=== PATIENT | male | born 1960 | race Caucasian/White ===

== ENCOUNTER → 2022-06-11 15:20 | Outpatient (BNVA) | payer OTHER, SELFPAY | PROVIDERS: PCP Nurse Practitioner Family; Visit Provider Internal Medicine | DX: M79.2 Neuralgia and neuritis, unspecified (principal) | CPT/HCPCS: 64425 ==

== ENCOUNTER → 2022-07-09 14:16 | Outpatient (BNVA) | payer OTHER, SELFPAY | PROVIDERS: PCP Nurse Practitioner Family; Visit Provider Internal Medicine | DX: Z13.89 Encounter for screening for other disorder (principal) ==

== ENCOUNTER 2022-09-12 14:23 | Day surgery (SDC) | payer OTHER, SELFPAY ==
--- NOTE | ~2022-09-12 | FL_ITS ---
EXAMINATION: XR FLUOROSCOPY WITH IMAGES CLINICAL INFORMATION: Lumbar surgical pain, medial nerve block. COMPARISON: None available. TECHNIQUE: Fluoroscopy Supervised By: Dr. Almonte. Fluoroscopy Time: 0.5 minutes. Cumulative Dose: 7.4 mGy. DAP: 1.07 Gycm2. Images: 5. FINDINGS: Limited field of view. Exact level difficult to discern. Correlate with real-time findings. FL/FL guidance in OR IMPRESSION: Limited field of view. As above.
[2022-09-12 14:45] VITALS: BP 129/94; PULSE 120; RESP 18; TEMP 37.7; O2SAT 95; BMI 21.3
[2022-09-12 17:50] VITALS: BP 151/95; PULSE 87; RESP 16; TEMP 36.9; O2SAT 96
--- NOTE | 2022-09-12 18:25 | PC.NURSE ---
1814 Dr. Jonel courtney procedure in PACU request was made for placement of discharge orders for patient. Patient device rep reviewed post op plan and orders with patient following procedure. Patient reports aware of post op limitations and plan as was reviewed by rep prior to and following procedure. Patient indicated need to discharge to home now related to ride issue and is unable to wait for surgeon to input discharge. Patient indicated ride availability impacted by the delay of procedure. Patient ambulatory, dressed at bedside without limitation steady on feet.
--- NOTE | 2022-09-12 18:35 | MHC.SHP ---
Pre-Procedural Eval Section A Date of Service: 09/12/22 The patient is an INPATIENT: No Changes since office visit: Yes Patient answered all questions The History & Physical has been completed within 30 days and I have reviewed it.: Yes Section B Chief Complaint: Neuralgia and neuritis, unspecified Relevant Family History (Specify if Yes): Yes Relevant Social History: None Present Medications: see Short Stay Collaborative assessment Medical History: No relevant PMH History of Previous Operations: No relevant previous surgery Allergies: Allergies Allergy/AdvReac Type Severity Reaction Status Date / Time keflex AdvReac Mild Hives Uncoded 07/09/22 14:27 Review of Systems Sugical H&P ROS: Negative: Constitution, Cardiovascular and Respiratory Exam Surgical H&P Exam: Normal: HEENT, Normal: Heart and Normal: Lungs Plan Diagnosis/Plan: Unchanged I have reviewed the history and physical and performed a pertinent physical examination on my patient. No changes have occurred unless specified. Proceed with L1 versus L2 nerve root stimulator placement for ilioinguinal neuralgia. Time Spent With Patient Time: Total time managing care of this patient today ____ minutes.
--- NOTE | 2022-09-12 18:35 | PM.OP ---
Brief Operative Note Date of Service: 09/12/22 Pre-op diagnosis: Ilioinguinal neuralgia Post-op diagnosis: same Procedure: Left L2 nerve root temporary stimulator placement Implants: Sprint temporary PNS system Surgeon: John Remy MD Anesthesia: local Was an Advanced Analytics Associate used for this Procedure?: No Estimated blood loss (mL): 1 Pathology: none sent Condition: stable Disposition: same day
--- NOTE | 2022-09-12 18:35 | W.PM.OPN ---
Operative Note Operative Note Date of Service: 09/12/22 Narrative: Lumbar Nerve Root Temporary Nerve Stimulator Placement, Left L2 ? After the risks, benefits and alternatives were discussed with the patient and informed consent was obtained, patient was placed in the prone position and padded to foster comfort. The skin overlying the lumbosacral spine was prepped and draped in sterile fashion. Fluoroscopy was used to identify the L1 vertebral body. The patient was noted to have 6 lumbar type vertebral bodies and 12 thoracic type vertebral bodies. Decision was made to trial both L1 and L2 nerve roots her appropriateness of respective coverage. After identifying and marking the intended target along the course of the medial branch nerve, the skin around the planned entry point and the subcutaneous tissues were injected with lidocaine 0.75%. An introducer needle and stimulating probe were assembled, inserted and advanced in an ipsilateral oblique fashion towards the safe triangle within the upper pole of the L1 neural foramen, taking care to maintain the proper depth of insertion as the introducer was advanced under fluoroscopic guidance. The introducer needle was delivered to a location in proximity to the nerve root. Multiple stimulation parameters were used to deliver stimulation to the target medial branch nerve in concert with stimulating at multiple positions around the nerve. The patient did not report adequate corresponding paresthesia coverage with stimulation of the L1 nerve root. The probe was removed and then replaced at the L2 level. Nerve target acquisition was confirmed noting generation of paresthesias in the left buttock and groin. Various electrical parameter combinations were tested. The stimulating probe was removed from the introducer and a percutaneous lead was guided through the needle and delivered to a location in similar proximity to the nerve. Final location was verified with electrical stimulation and documented with fluoroscopy. The introducer needle was removed. Unfortunately the stimulation lead did not deploy and was pulled out upon the removal of the introducer needle. The introducer needle was then reassembled and replaced as before and then lead was inserted once again. It deployed successfully upon removal of the introduce a loop needle on the 2nd attempt. The exposed end of the percutaneous lead was attached to an external stimulator unit. Various electrical parameter combinations were again tested until the patient indicated paresthesia or muscle tension overlapping the distribution of the patient?s typical region of pain. After confirming that lead impedance was in the normal range, the external unit was detached, the needle was removed, and the lead was anchored at the skin. The lead was threaded into the connector block and electrical continuity and desired patient response was confirmed. The connector block was attached to the external stimulator unit. The site was covered with a sterile occlusive dressing. The patient was observed for stability of vital signs and comfort.
== END 2022-09-12 18:36 | disposition home or self-care (01) ==
PROVIDERS: PCP Nurse Practitioner Family; Visit Provider Internal Medicine
PROC: (CPT 64555; principal; 2022-09-12 14:30)
DX: G57.80 Other specified mononeuropathies of unspecified lower limb (principal); G89.29 Other chronic pain; M25.511 Pain in right shoulder; Z98.890 Other specified postprocedural states; M54.9 Dorsalgia, unspecified; I10 Essential (primary) hypertension; Z79.1 Long term (current) use of non-steroidal anti-inflammatories (NSAID); Z79.899 Other long term (current) drug therapy; F10.10 Alcohol abuse, uncomplicated; F12.90 Cannabis use, unspecified, uncomplicated; Z88.1 Allergy status to other antibiotic agents
CPT/HCPCS: 64555; C1778

== ENCOUNTER → 2022-09-17 08:06 | Outpatient (BNVA) | payer OTHER, SELFPAY | PROVIDERS: PCP Nurse Practitioner Family; Visit Provider Internal Medicine ==

== ENCOUNTER → 2022-10-09 07:57 | Outpatient (BNVA) | payer OTHER, SELFPAY | PROVIDERS: PCP Nurse Practitioner Family; Visit Provider Internal Medicine ==

== ENCOUNTER 2022-10-17 14:24 | Outpatient (REF) | payer OTHER, SELFPAY ==
--- NOTE | ~2022-10-17 | XR_ITS ---
EXAMINATION: XR LUMBOSACRAL SPINE CLINICAL INFORMATION: Reason for Exam M47.816 - Spondylosis without myelopathy or radiculopathy, lumbar region COMPARISON: None TECHNIQUE: 3 views of the lumbar spine FINDINGS: There are 6 nonrib-bearing lumbar-type vertebral bodies with lumbarization of S1, and if intervention is being considered recommend total spine radiographs to ensure accurate numbering. The last well-formed disc space will be referred to as S1-S2. Vertebral body heights are maintained. Grade 1 anterolisthesis of L5 on S1 and grade 1 retrolisthesis of L4 on L5. Mild multilevel degenerative disc disease with loss of disc space height and facet arthropathy. A generator device presumed to reflect a spinal cord stimulator with leads terminating overlying the right L2-L3 neural foramina. XR/XR lumbar spine 2-3V IMPRESSION: 1. There are 6 nonrib-bearing lumbar-type vertebral bodies with lumbarization of S1, and if intervention is being considered recommend total spine radiographs to ensure accurate numbering. The last well-formed disc space will be referred to as S1-S2. 2. Grade 1 anterolisthesis of L5 on S1 and grade 1 retrolisthesis of L4 on L5. 3. Mild multilevel degenerative disc disease with loss of disc space height and facet arthropathy. 4. A generator device presumed to reflect a spinal cord stimulator with leads terminating overlying the right L2-L3 neural foramina.
== END 2022-10-17 14:25 | disposition home or self-care (01) ==
LOC: HO.XRAY 14:24
PROVIDERS: Visit Provider Internal Medicine
DX: M47.816 Spondylosis without myelopathy or radiculopathy, lumbar region (principal)
CPT/HCPCS: 72100

== ENCOUNTER 2022-11-26 14:13 | Outpatient (AMB) | payer OTHER, SELFPAY ==
--- NOTE | 2022-11-26 13:39 | A.OFFVIS_ITS ---
Intake Intake Visit Reasons: follow up regarding SCS/DRG Patton procedure Allergies keflex Adverse Reaction (Mild, Uncoded 10/09/22 10:15) Hives HPI follow up regarding SCS/DRG Patton procedure HPI Details 62-year-old male who presents today to t he office for a tele-visit follow-up regarding procedure SCS/ DRG (Patton). The patient has completed his psychological clearance. He inquired about how to recharge the device battery. He has a scheduled appointment for new patient establishment with his new primary care physician. His last primary care physician is retired now. Past procedure: 09/12/22: Lumbar Nerve Root Temporary Ne rve Stimulator Placement, right L2: 90% relief. 06/11/2022: Ilioinguinal nerve block, ri ght, ultrasound-guided: No relief. [facility] Medical History Macrocytosis Oral candidiasis Primary hypertension Marijuana use Alcohol abuse Other chronic pain Nerve entrapment Surgical History S/P right inguinal hernia repair Social History Are you a primary md do resident urgent care to a significant other at home: No Do you presently have visiting nurse or other home services: No Patient Tobacco Use Status: Current everyday Tobacco user Tobacco use type: Cigarette Cigarette Packs Per Day: 1 Cigarettes Per Day: 20.0 Review of Systems Const All systems reviewed & are unremarkable except as noted in HPI and below Physical Exam General: Appears afebrile. Alert and oriented. Mood and affect appropriate. Follows and participates in conversation appropriately. Respiratory effort is unlabored. Able to transition from sit to stand unassisted. Ambulates with bilaterally normal heel strike and toe off. Results Reviewed Results Reviewed: No imaging is available for review. Assessment & Plan Assessment & Plan (1) Neuralgia of right inguinal region: Comment: status post inguinal hernia repair with mesh Code(s): M79.2 - Neuralgia and neuritis, unspecified Plan 62-year-old male with CRPS of the right inguinal region secondary to prior inguinal herniorrhaphy. He had an excellent response to a nerve root stimulator placement with a Sprint device with up to 90% relief during the duration of the therapy. Unfortunately experienced a spontaneous fracture of the lead and the superficial segment of the lead was removed. Since then he has experienced a gradual return of symptoms with his pain relief level already down to about 50% from what he had during the the time that the nerve root stimulator was in place. I discussed a trial of right L1 and L2 epidural/dorsal root ganglion stimulator lead placement followed by implant in case of a successful trial. He is interested in proceeding with this therapy since he has previously failed oral medications, neuropathic medications, trial of tap block and temporary neurostimulator placement. Scribed for Dr. Remy by Vito Granda, medical office asst, on 11/26/2022. I, Dr. Remy, have personally reviewed and agree with the information entered by the scribe. Telehealth Telehealth Patient Identification confirmed using: Name, : Yes Telehealth method: voice only Patient verbally consented to treatment: Yes Patient verbally consented to billing insurance company: Yes Patient informed of any privacy concerns related to visit: Yes Minutes spent on Phone/Video with Pt.: 9 Coding Level of Care Code Tele Est Pt Level 3 (53770) Diagnoses Neuralgia of right inguinal region M79.2
--- OUTSIDE RECORDS SUMMARY | 2022-11-26 14:15 | XMS_ITS | Continuity of Care Document ---
Author Name Unknown Organization [facility] Address [address] [facility] [address] [place] [address]- Care Team Providers Care Medical Insurance Biller Name Role Phone Christine Freeman NP Primary Care Physician Encounter [facility] Date(s): 09/17/22 - 10/17/22 [facility] [address] [place] [id number]- Allergies, Adverse Reactions, Alerts Substance Reaction Severity Status Keflex Hives Persistent Moderate Active Immunizations Given and Recorded Vaccine Date Status Refusal Reason Pneumococcal Vaccine (oldterm) 03/03/08 Given Medications Advil 200 mg oral tablet 2 tablet = 400 mg, By Mouth, Every 6 hours, PRN for pain, # 120 tablet, 0 Refills, Maintenance, 12/28/20 12:40:00 EDT, Tablet, Partial fill upon patient request if the prescription is for a schedule II opioid drug. 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 Confirmed Active Right inguinal hernia Confirmed Active Social History Social History Type Response Smoking Status 5-9 cigarettes (betw een 1/4 to 1/2 pack)/day in last 30 days;Never; Type: Cigarettes entered on: 01/11/21 Sex Patient Care team information Care Team Personnel Name: Angela Recio Position: [facility] Outreach Member Role: Lifetime Consulting Physician Name: Christine Freeman NP Position: [facility] Associate Professional Member Role: PCP Address: Address: [address] [place] [address], [address] [facility] [place] [address]- Name: Ashleigh Galindo RN Position: [facility] Nurse Member Role: Primary Care Nurse Care Team Related Persons Name: KAROLINE AVILES Name: STEFAN JASON Address: [address] [address]
== END 2022-11-26 14:13 | disposition home or self-care (01) ==
LOC: HO.PMC 14:13
PROVIDERS: PCP Nurse Practitioner Family; Visit Provider Internal Medicine
DX: M79.2 Neuralgia and neuritis, unspecified (principal)
CPT/HCPCS: 99213

== ENCOUNTER → 2022-11-26 14:13 | Outpatient (BNVA) | payer OTHER, SELFPAY | PROVIDERS: PCP Nurse Practitioner Family; Visit Provider Internal Medicine | DX: M79.2 Neuralgia and neuritis, unspecified (principal) ==

== ENCOUNTER 2023-02-27 11:02 | Day surgery (SDC) | payer OTHER, SELFPAY ==
[2023-02-25 09:32] VITALS: BMI 21.1
--- NOTE | 2023-02-26 10:59 | P.CONAN_ITS ---
HPI - Anesthesia Eval Consult details Narrative: 62yo M for Right TRIAL L1 and L2 epidural/ Dorsal Root Ganglion Stim Patton ETOH: 6 drinks daily PMFSH Active Problems Active Problems: All Active Problems (Updated 02/25/23 @ 09:33 by Belem Landin, LUCIE) Neuralgia of right inguinal region (Acute) Past Medical History Medical History (Updated 03/05/23 @ 10:52 by Mala Burgos CTRS, ACCOUNT CONTACT ASSOCIATE) Macrocytosis Oral candidiasis Primary hypertension Marijuana use Alcohol abuse Other chronic pain Nerve entrapment Surgical History Surgical History (Updated 02/27/23 @ 11:50 by Jessica Tidwell RN) History of mandibular surgery Hx of hand surgery Hx of shoulder surgery S/P placement of nerve stimulator S/P right inguinal hernia repair Social History Social History Are you a primary live in caregiver to a significant other at home: No Do you presently have visiting nurse or other home services: No Patient Tobacco Use Status: Current everyday Tobacco user Tobacco use type: Cigarette Cigarette Packs Per Day: 1 Cigarettes Per Day: 20 Meds Allergies Allergy/AdvReac Type Severity Reaction Status Date / Time cephalexin [From Keflex] Allergy Mild Hives Verified 03/05/23 09:42 Home Medications Medication Instructions Recorded Confirmed Last Taken Type ibuprofen 200 mg capsule 200 mg PO Q6H PRN Pain 06/11/22 02/27/23 Unknown History amlodipine 5 mg tablet 5 mg PO DAILY 09/17/22 02/27/23 Unknown History Exam Height,Weight and Vital Signs: Height 5 ft 8 in Weight 63.049 kg Assessment and Plan Assessment Anesthesia Assessment: Chart Reviewed
--- NOTE | ~2023-02-27 | FL_ITS ---
EXAMINATION: XR FLUOROSCOPY WITH IMAGES CLINICAL INFORMATION: L1-L2 epidural/dorsal root ganglion stim. COMPARISON: None available. TECHNIQUE: Fluoroscopy Supervised By: Dr. John Remy. Fluoroscopy Time: 7.2 minutes. Cumulative Dose: 118 mGy. DAP: 3.72 Gycm2. Images: 4. FINDINGS: Images demonstrate 2 cannulas and wires projecting over the spinal canal via the right side at the L1 and L2 levels. FL/FL guidance in OR IMPRESSION: Fluoroscopy guidance for pain management procedure
[2023-02-27 11:51] VITALS: BMI 21.9
[2023-02-27 12:10] VITALS: BP 146/87; PULSE 93; RESP 16; TEMP 37.2; O2SAT 96
[2023-02-27] MEDS: Lactated Ringers 1,000 ML 100 ML IVCONT (12:10)
[2023-02-27 13:27] LABS: MRSA Nasal PCR NEGATIVE (Negative); SA Nasal PCR NEGATIVE (Negative)
[2023-02-27 14:32] VITALS: BP 141/77; PULSE 88; RESP 16; TEMP 36.9; O2SAT 98
[2023-02-27 14:47] VITALS: BP 142/94; PULSE 87; RESP 16; TEMP 36.9; O2SAT 100
--- NOTE | 2023-02-27 15:34 | MHC.SHP ---
Pre-Procedural Eval Section A Date of Service: 02/27/23 The patient is an INPATIENT: No Changes since office visit: Yes Patient answered all questions The History & Physical has been completed within 30 days and I have reviewed it.: No Section B Chief Complaint: Neuralgia and neuritis, unspecified Relevant Family History (Specify if Yes): No Relevant Social History: Tobacco Use Present Medications: see Short Stay Collaborative assessment Medical History: No relevant PMH History of Previous Operations: No relevant previous surgery Allergies: Allergies Allergy/AdvReac Type Severity Reaction Status Date / Time cephalexin [From Keflex] Allergy Mild Hives Verified 02/27/23 11:50 Review of Systems Sugical H&P ROS: Negative: Constitution, Cardiovascular and Respiratory Exam Surgical H&P Exam: Normal: HEENT, Normal: Heart and Normal: Lungs Plan Diagnosis/Plan: Unchanged I have reviewed the history and physical and performed a pertinent physical examination on my patient. No changes have occurred unless specified. Time Spent With Patient Time: Total time managing care of this patient today ____ minutes.
--- NOTE | 2023-02-27 15:34 | PM.OP ---
Brief Operative Note Date of Service: 02/27/23 Pre-op diagnosis: Complex regional pain syndrome of the right inguinal region, ilioinguinal neuralgia Post-op diagnosis: same Procedure: Right L1 and L2 dorsal root ganglion stimulator electrode placement Implants: Patton DRG trial leads Surgeon: John Remy MD Anesthesia: MAC Was an Supervisor Pairing And Inspecting used for this Procedure?: No Estimated blood loss (mL): 2 Pathology: none sent Condition: stable Disposition: PACU
--- NOTE | 2023-02-27 15:36 | W.PM.OPN ---
Operative Note Operative Note Date of Service: 02/27/23 Narrative: Percutaneous Dorsal Root Ganglion Stimulator Trial, Right, L1 and L2 After obtaining written consent, pre-procedure blood pressure and heart rate were recorded and are in the nursing record for review. A peripheral IV was started. Antibiotics, cefazolin 2 gram, were given intraoperatively. The patient was placed in a prone position.? The patient was sedated by the anesthesiologist. The thoracolumbar area was widely prepped with ChloraPrep, allowed to dry and draped in sterile fashion. Fluoroscopy was used to identify the target interlaminar spaces and appropriate needle insertion sites. The skin and subcutaneous tissue was anesthetized with 0.5% lidocaine mixed with 0.25% ropivacaine. A contralateral, paramedian, antegrade approach was utilized and a 14 gauge Touhy needle was advanced towards the target interlaminar space. The needle tip was directed towards the target right L1 foramina. Loss of resistance to air was utilized to access the epidural space in the midline. A prepacked sheath was introduced through the needle. The electrode lead was loaded into the pre packed sheath and advanced just past the tip of the sheath. The sheath and the electrode were then advanced towards the target foramen. The 4 contact lead was then advanced through the foramen so as to have to contact placed between the medial and lateral borders of the target pedicle. Once the correct placement of the lead was confirmed on AP and lateral views, the sheath was withdrawn to the tip of the needle while making sure that the lead did not migrate during the withdrawal. Holding the sheath back, the lead was advanced to the epidural space to create a superior loop of the lead wire above the level of the foramen to the level of the disc above. The sheath was then angled inferiorly and a similar loop was created inferior to the level of the target foramen. A second 4 contact lead was advanced in a similar fashion at the level below. The plastic sheath, stylet and Tuohy needles were then completely removed under live fluoroscopy. The stimulator wires were then secured with 2-0 silk sutures securing the anchors, sterile strips and gauze and tegaderm for skin dressing. The patient tolerated the procedure well and no complications were encountered. Following the procedure the patient's vital signs were stable. The patient was discharged home in good condition after being given discharge instructions. Time Out: Immediately prior to the procedure, the following was verbally confirmed that there is a signed consent form and that the correct patient, planned procedure, site and side are consistent with documentation and that necessary equipment and/or blood products are available prior to the start of the case. Complications: none EBL: <2 cc
== END 2023-02-27 15:38 | disposition home or self-care (01) ==
PROVIDERS: Registered Nurse Emergency; PCP Physician Assistant Surgical; Visit Provider Internal Medicine
PROC: (CPT 63650; principal; 2023-02-27 13:00)
DX: M79.2 Neuralgia and neuritis, unspecified (principal); G90.50 Complex regional pain syndrome I, unspecified; I10 Essential (primary) hypertension; D75.89 Other specified diseases of blood and blood-forming organs; F10.10 Alcohol abuse, uncomplicated; F12.90 Cannabis use, unspecified, uncomplicated; Z79.1 Long term (current) use of non-steroidal anti-inflammatories (NSAID); Z79.899 Other long term (current) drug therapy; Z88.1 Allergy status to other antibiotic agents; Z98.890 Other specified postprocedural states; F17.210 Nicotine dependence, cigarettes, uncomplicated
CPT/HCPCS: 63650 ×2; 87640; 87641; C1897; J0131; J0665; J0690; J2250; J2704

== ENCOUNTER → 2023-02-27 11:02 | Outpatient (BNV) | payer OTHER, SELFPAY | PROVIDERS: PCP Physician Assistant Surgical; Visit Provider Internal Medicine | DX: M79.2 Neuralgia and neuritis, unspecified (principal) | CPT/HCPCS: 63650 ==

== ENCOUNTER 2023-03-05 09:12 | Outpatient (AMB) | payer OTHER, SELFPAY ==
[2023-03-05 09:42] VITALS: BP 160/80; PULSE 90; RESP 16; O2SAT 96; BMI 21.7
--- NOTE | 2023-03-05 09:42 | A.OFFVIS_ITS ---
Intake Vital Signs 03/05/23 09:42 Height 5 ft 8 in Weight 143 lb BMI 21.7 BP 160/80 H Blood Pressure Location Lt brachial Position Sitting Respiration 16 Pulse 90 Pulse Source Pulse Oximeter Pulse Oximetry (%) 96 Oxygen Delivery Method Room Air Intake Visit Reasons: s/p Patton DRG Stim Trial 02/27/23/confirmed Allergies cephalexin [From Keflex] Allergy (Mild, Verified 03/05/23 09:42) Hives HPI HPI Comments History of Present Illness0 Details Michael is a very pleasant 62 year old male who presents to the office today for follow up 1 week s/p Patton SCS/DRG placement for inguinal CRPS after hernia repair. Patient reports 90% pain relief of his most significant pain of the right groin. He states no improvement noted to the penile itching that he feels though he was aware that the placement was intended to treat the tearing groin pain, which is the pain that was relieved during the trial. Patient denies untoward effects during the trial. Past procedure: 02/27/23: Patton SCS/DRG trial: 90% reli ef 09/12/22: Lumbar Nerve Root Temporary Ne rve Stimulator Placement, right L2: 90% relief. 06/11/2022: Ilioinguinal nerve block, ri ght, ultrasound-guided: No relief. [facility] Medical History (Updated 03/05/23 @ 10:52 by Mala Burgos APRN, [employer]) Macrocytosis Oral candidiasis Primary hypertension Marijuana use Alcohol abuse Other chronic pain Nerve entrapment Surgical History (Updated 02/27/23 @ 11:50 by Jessica Tidwell RN) History of mandibular surgery Hx of hand surgery Hx of shoulder surgery S/P placement of nerve stimulator S/P right inguinal hernia repair Social History Are you a primary care rep to a significant other at home: No Do you presently have visiting nurse or other home services: No Patient Tobacco Use Status: Current everyday Tobacco user Tobacco use type: Cigarette Cigarette Packs Per Day: 1 Cigarettes Per Day: 20 Review of Systems Const All systems reviewed & are unremarkable except as noted in HPI and below Physical Exam Vital Signs: Last Vital Signs Pulse 90 03/05/23 09:42 Resp 16 03/05/23 09:42 BP 160/80 H 03/05/23 09:42 Pulse Ox 96 03/05/23 09:42 Oxygen Delivery Method Room Air 03/05/23 09:42 BMI result Body Mass Index 21.7 General: awake, alert, oriented. Answers questions appropriately. Fully engaged in examination. Skin: warm, dry, intact HEENT: Normocephalic. Hearing intact. Cardiac: External chest normal in appearance. Respiratory: No cough, audible wheezing or stridor. Abdomen: without gross distension. MS: No obvious swelling or deformities. Able to transition from sit to stand unassisted. Ambulates with bilaterally normal heel strike and toe off Neurological: Oriented to person, place, time and situation. Thought process intact. Psychiatric: Appropriate mood and affect. Good judgment and insight. Patton SCS/DRG Trial lead removal: Dressing was taken down, area was cleansed with chloraprep, insertion site was visualized and without redness/irritation/drainage. Sutures removed and both leads withdrawn without resistance; leads examined and noted to be without concern, tips intact. Area cleansed again, bacitracin dressing was applied, area covered with tegaderm. Assessment & Plan Assessment & Plan (1) Neuralgia of right inguinal region: Comment: status post inguinal hernia repair with mesh Code(s): M79.2 - Neuralgia and neuritis, unspecified (2) CRPS (complex regional pain syndrome type II): Code(s): G56.40 - Causalgia of unspecified upper limb (3) CRPS (complex regional pain syndrome), lower limb: Code(s): G90.529 - Complex regional pain syndrome I of unspecified lower limb Plan Michael is a very pleasant 62-year-old male who presented to the office today for follow-up 1 week status post Patton SCS/DRG trial. Leads removed as per above. Patient reports 90% relief of his right inguinal ?tearing? pain during the duration of the trial. He does state that he has some penile itching and sharp pains that continued though he was advised prior to the trial that the target would be the inguinal pain. Overall he is very satisfied with the relief that he got during the trial and would like to proceed with implant. Will schedule for Fluoroscopy guided Patton SCS/DRG right L1 and L2 epidural/dorsal root ganglion placement with anesthesia for CRPS of the right inguinal region secondary to prior inguinal herniorrhaphy. All questions and concerns were addressed during the visit today. Patient follow-up after the implant, sooner if needed Coding Level of Care Code Est Pt Level 4 (39646) Diagnoses Neuralgia of right inguinal region M79.2 CRPS (complex regional pain syndrome type II) G56.40 CRPS (complex regional pain syndrome), lower limb G90.529
== END 2023-03-05 09:52 | disposition home or self-care (01) ==
PROVIDERS: PCP Nurse Practitioner Family; Visit Provider Registered Nurse Emergency
DX: M79.2 Neuralgia and neuritis, unspecified (principal); G56.40 Causalgia of unspecified upper limb; G90.529 Complex regional pain syndrome I of unspecified lower limb
CPT/HCPCS: 99024

== ENCOUNTER → 2023-03-05 09:12 | Outpatient (BNVA) | payer OTHER, SELFPAY | PROVIDERS: PCP Nurse Practitioner Family; Visit Provider Registered Nurse Emergency ==